=== PATIENT | female | born 1985 | race Caucasian/White ===

== ENCOUNTER 2017-05-09 16:18 | Emergency (ER) | payer BC ==
[~2017-05-09] VITALS: Ht 162.6 cm; Wt 67.1 kg
[~2017-05-09 16:18] MED LIST: ENDOCET 5-3251 EACH PO; FIORICET,ESG1 TABLET PO; IBUPROFEN800 MG PO; IMITREX50 MG PO; MOTRIN800 MG PO; PRENATAL TABLE1 EAC3 PO; THERAGRAN1 TABLET PO; UNISOM50 MG PO; VITAMIN B-650 M1 PO; ZANTAC150 MG PO
[2017-05-09 16:56] LABS: ADD MIUA? YES; BILIRUBIN NEGATIVE; BLOOD MODERATE; COLOR YELLOW ((YELLOW)); GLUCOSE (STRIP) NEGATIVE; KETONES 20; LEUKOCYTES MODERATE; NITRITE NEGATIVE; PROTEIN (STRIP) 100; SPECIFIC GRAVITY 1.027 (1.000-1.030); UROBILINOGEN 0.2 MG/DL (0.2-1.0)
[2017-05-09 17:04] LABS: HEMATOCRIT 39.7 % (36.0-46.0); MCH 29.1 PG (29.0-34.0); MCHC 34.5 G/DL (30.0-36.0); MCV 84.3 FL (83-99); MEAN PLAT.VOLUME 9.2 uM^3 (9.5-12.4); PLATELET COUNT 337 K/uL (156-360); RBC DIS.WIDTH-CV 12.4 % (11.8-14.6); RED BLOOD COUNT 4.71 M/uL (3.80-5.20); WHITE BLOOD COUNT 8.9 K/uL (4.1-10.2)
[2017-05-09 17:12] LABS: CHLORIDE 108 mEq/L (99-109); POTASSIUM 4.1 mEq/L (3.7-5.4); SODIUM 136 mEq/L (136-147)
[2017-05-09 17:12] LABS: BACTERIA RARE /HPF; EPITHELIAL CELLS RARE /HPF; MUCUS 2+ /LPF; RED BLOOD CELLS 0-5 /HPF (0-5); UCUL ADDED? YES
[2017-05-09 17:14] LABS: GLUCOSE 132 mg/dL (70-99)
[2017-05-09 17:16] LABS: ANION GAP 10 MEQ/L (2-14)
[2017-05-09 17:18] LABS: GFR ESTIMATE (CALCULATED) > 59 mL/min/
[2017-05-09 17:19] LABS: UREA NITROGEN (BUN) 16 mg/dL (9-23)
[2017-05-09 17:26] LABS: QUANTITATIVE HCG 779.9 MIU/ML
[2017-05-09] MEDS ORDERED: KEFLEX500 MG PO (18:38)
[2017-05-09 20:41] VITALS: BP 127/73
== END 2017-05-09 20:42 | disposition home or self-care (01) ==
LOC: EME 16:18
PROVIDERS: Physician Assistant Medical
DX: G43.909 Migraine, unspecified, not intractable, without status migrainosus (principal); N93.9 Abnormal uterine and vaginal bleeding, unspecified; N39.0 Urinary tract infection, site not specified
CPT/HCPCS: 76801; 80048; 81003; 84702; 85027; 86900; 86901; 87086; 99281; 99285; J2405; J7030

== ENCOUNTER 2017-06-06 08:53 | Day surgery (SDC) | payer BC ==
[~2017-06-06] VITALS: Ht 162.6 cm; Wt 64.8 kg
[~2017-06-06 08:53] MED LIST changes: +KEFLEX500 MG PO; +MULTI ANTIBIOTI14 GM TP
[2017-06-06] MEDS ORDERED: MEGA MULTI FOR1 EACH PO (09:38)
[2017-06-06 09:41] VITALS: BP 120/85
[2017-06-06 09:54] LABS: EOSINOPHIL COUNT 0.1 K/uL (0-0.3); HEMATOCRIT 37.7 % (36.0-46.0); IMMATURE GRANULOCYTE (%) 0.6 % (0.0-0.7); INSTRUMENT ABS NEUTROPHIL CT 3.9 K/uL; LYMPHOCYTE COUNT 1.7 K/uL (1.0-2.8); MCH 29.7 PG (29.0-34.0); MCV 87.5 FL (83-99); MEAN PLAT.VOLUME 9.7 uM^3 (9.5-12.4); MONOCYTE (%) 7.7 % (3-12); MONOCYTE COUNT 0.5 K/uL (0-0.8); NEUTROPHIL (%) 63.4 % (45-76); NEUTROPHIL COUNT 3.9 K/uL (1.8-6.4); PLATELET COUNT 296 K/uL (156-360); RBC DIS.WIDTH-CV 12.6 % (11.8-14.6); RBC DIS.WIDTH-SD 40.4 % (39-53); RED BLOOD COUNT 4.31 M/uL (3.80-5.20); WHITE BLOOD COUNT 6.2 K/uL (4.1-10.2)
[2017-06-06] MEDS ORDERED: IBUPROFEN800 MG PO (10:49)
[2017-06-06] MEDS ORDERED: DOXYCYCLINE HY100 MG PO (10:49)
[2017-06-06 11:33] VITALS: BP 119/72
[2017-06-06 12:50] VITALS: BP 112/79
== END 2017-06-06 12:50 | disposition home or self-care (01) ==
LOC: SDC 08:53
PROVIDERS: Obstetrics & Gynecology
PROC: 10D07Z8 Extraction of Products of Conception, Other, Via Natural or Artificial Opening (ICD-10-PCS; principal; 2017-06-06)
DX: O02.0 Blighted ovum and nonhydatidiform mole (principal)
CPT/HCPCS: 84702; 85025; 86850; 86900; 86901; 88305; J1100; J1885; J2250; J2405; J3010